=== PATIENT | male | born 1975 | race Two or more races ===

== ENCOUNTER 2020-11-11 09:17 | Emergency (ER) | payer MEDICAID, OTHER ==
[~2020-11-11] VITALS: Ht 170.2 cm; Wt 83.5 kg
[2020-11-11 10:11] VITALS: BP 127/97
[2020-11-11] MEDS ORDERED: IBUPROFEN 800 MG TAB PO ONE (11:00)
[2020-11-11] MEDS ORDERED: TETANUS-DIPTH-ACEL PERTUSSIS 0.5ML SYR Tdap IM ONE (11:00)
[2020-11-11] MEDS ORDERED: cefTRIAXone SOD 1,000 MG VL IM ONE (11:00)
[2020-11-11] MEDS ORDERED: LIDOCAINE 1% HCL (LOCAL ANESTH.) INJ 20ML MDV ONE (11:09)
== END 2020-11-11 11:31 | disposition home or self-care (01) ==
LOC: ER 09:17 → EDBD 09:17 → ER 11:31
DX: S62.631A Displaced fracture of distal phalanx of left index finger, initial encounter for closed fracture (principal); W22.8XXA Striking against or struck by other objects, initial encounter; Y93.89 Activity, other specified; Y92.89 Other specified places as the place of occurrence of the external cause; Y99.8 Other external cause status
CPT/HCPCS: 73140; 90471; 90715; 96372; 99284; J0696; J2001